=== PATIENT | male | born 1995 | race Two or more races ===

== ENCOUNTER 2023-01-28 15:01 | Emergency (ER) | payer MEDICAID, OTHER ==
[~2023-01-28] VITALS: Ht 172.7 cm; Wt 123.0 kg
[2023-01-28] MEDS ORDERED: IBUP1TAB5 PO (17:07)
[2023-01-28] MEDS ORDERED: HYDR-4902 PO (17:07)
[2023-01-28] MEDS ORDERED: DexAMETHasone SOD PHOS 10MG/1ML VIAL INJ IM ONE (17:15)
[2023-01-28] MEDS ORDERED: HYDROcodone-ACET 5/325MG TAB PO ONE (17:15)
[2023-01-28] MEDS ORDERED: KETOROLAC TROMETH 60MG/2ML VIAL IM ONE (17:15)
[2023-01-28 17:56] VITALS: BP 128/88; TEMP 98.2
[2023-01-28 17:57] VITALS: PULSE 78; RESP 18; O2SAT 100
== END 2023-01-28 17:56 | disposition home or self-care (01) ==
LOC: ER 15:01
DX: S83.92XA Sprain of unspecified site of left knee, initial encounter (principal); Z79.1 Long term (current) use of non-steroidal anti-inflammatories (NSAID); Z79.899 Other long term (current) drug therapy; W17.2XXA Fall into hole, initial encounter; Y93.89 Activity, other specified; Y92.89 Other specified places as the place of occurrence of the external cause; Y99.8 Other external cause status
CPT/HCPCS: 73562

== ENCOUNTER 2023-02-08 10:43 | Emergency (ER) | payer MEDICAID ==
[~2023-02-08] VITALS: Ht 172.7 cm; Wt 118.0 kg
[~2023-02-08 10:43] MED LIST: HYDR-4902 PO; IBUP1TAB5 PO
[2023-02-08 10:48] VITALS: BP 140/89; TEMP 97.8
[2023-02-08 11:26] VITALS: PULSE 83; RESP 18; O2SAT 97
== END 2023-02-08 11:27 | disposition home or self-care (01) ==
LOC: ER 10:43
DX: S83.92XA Sprain of unspecified site of left knee, initial encounter (principal); Z79.1 Long term (current) use of non-steroidal anti-inflammatories (NSAID); Z79.899 Other long term (current) drug therapy; X50.1XXA Overexertion from prolonged static or awkward postures, initial encounter; Y93.89 Activity, other specified; Y92.89 Other specified places as the place of occurrence of the external cause; Y99.8 Other external cause status